=== PATIENT | female | born 1960 | race Caucasian/White ===

== ENCOUNTER 2022-07-14 21:17 | Inpatient (IN) | payer MEDICARE, OTHER ==
[~2022-07-14] VITALS: Ht 165.1 cm; Wt 58.0 kg
[2022-07-14] MEDS ORDERED: QUET25TA PO (22:30)
[2022-07-14] MEDS ORDERED: LITH300T PO (22:30)
[2022-07-14] MEDS ORDERED: VORT20TA PO (22:30)
[2022-07-14 23:15] LABS: COVID AG,FIA SOURCE NASOPHARYNGEAL
[2022-07-14 23:16] LABS: BASOPHILS % (AUTO) 0.7 % (0.0-2.0); EOSINOPHILS % (AUTO) 1.4 % (1.0-6.0); HEMATOCRIT 37.5 % (36-46); HEMOGLOBIN 12.1 g/dL (12.0-16.0); LYMPHOCYTES # (AUTO) 1.4 K/uL (1.0-4.8); LYMPHOCYTES % (AUTO) 10.2 % (22.0-44.0); MEAN CORPUSCULAR HEMOGLOBIN 28.2 pg (26.0-34.0); MEAN CORPUSCULAR HGB CONC 32.4 G/dL (31.0-37.0); MEAN CORPUSCULAR VOLUME 87 fL (80-100); MONOCYTES # (AUTO) 0.4 K/uL (0.1-1.0); MONOCYTES % (AUTO) 3.3 % (2.0-9.0); NEUTROPHILS # (AUTO) 11.5 K/uL (1.8-7.7); NEUTROPHILS % (AUTO) 84.4 % (40.0-70.0); PLATELET COUNT (AUTO) 345 K/uL (150-450); RED CELL DISTRIBUTION WIDTH 14.2 % (11.5-14.5)
[2022-07-14 23:24] LABS: ANION GAP 9 mmol/L (8-16); CALCIUM, TOTAL 9.2 mg/dL (8.8-10.5); CARBON DIOXIDE 29 mmol/L (22-29); CHLORIDE 100 mmol/L (98-107); CREATININE 0.87 mg/dL (0.60-1.30); GLUCOSE,RANDOM 105 mg/dL (70-110); SODIUM SERUM 138 mmol/L (136-145); UREA NITROGEN, BLOOD 11 mg/dL (7-18)
[2022-07-14 23:26] LABS: GLOMERULAR FILTR. RATE CALC > 60 mL/min (>60)
[2022-07-14 23:28] LABS: AMPHET/METH SCREEN,URINE NEGATIVE (NEGATIVE); BARBITURATE SCREEN, URINE NEGATIVE (NEGATIVE); BENZODIAZEPINES SCREEN,URINE NEGATIVE (NEGATIVE); CANNABINOID SCREEN,URINE NEGATIVE (NEGATIVE); COCAINE SCREEN,URINE NEGATIVE (NEGATIVE); METHADONE SCREEN, URINE NEGATIVE (NEGATIVE); OPIATE SCREEN,URINE NEGATIVE (NEGATIVE)
[2022-07-14 23:29] LABS: PHENCYCLIDINE SCREEN,URINE NEGATIVE (NEGATIVE)
[2022-07-14 23:39] LABS: ALANINE AMINOTRANSFERASE 17 U/L (12-78); ALBUMIN 4.4 g/dL (3.4-5.0); ALKALINE PHOSPHATASE 58 U/L (46-116); ASPARTATE AMINOTRANSFERASE 17 U/L (15-37); BILIRUBIN,TOTAL 0.2 mg/dL (0.1-1.0); TOTAL PROTEIN, SERUM 8.2 g/dL (6.4-8.2)
[2022-07-14 23:54] LABS: APPEARANCE,URINE CLEAR (CLEAR); BILIRUBIN,URINE NEGATIVE (NEGATIVE); GLUCOSE, URINE (UA) NEGATIVE (NEGATIVE); KETONES,URINE NEGATIVE (NEGATIVE); LEUKOCYTE ESTERASE ,URINE LARGE (NEGATIVE); NITRATE,URINE NEGATIVE (NEGATIVE); OCCULT BLOOD,URINE NEGATIVE (NEGATIVE); PH,URINE 5.5 (5.0-8.0); PROTEIN,URINE NEGATIVE (NEGATIVE); SPECIFIC GRAVITIY, URINE 1.004 (1.003-1.030); UROBILINOGEN,URINE <=1.0 mg/dL (<=1.0)
[2022-07-14 23:55] LABS: LITHIUM 0.37 mmol/L (0.60-1.20)
[2022-07-15] MEDS ORDERED: QUEtiapine FUMARATE 25 MG TABLET PO ONE
[2022-07-15 00:05] LABS: BACTERIA,URINE None Seen /HPF (None Seen); RBC,URINE None Seen /HPF (0-2); SQUAMOUS EPITHELIAL CELL,UR Few /LPF (None Seen)
[2022-07-15 02:10] VITALS: BP 124/69
[2022-07-15 08:00] VITALS: BP 115/73
[2022-07-15] MEDS: CEPHALEXIN MONOHYDRATE 250 MG CAPSULE PO SCH ×2 (09:35→16:31)
[2022-07-15] MEDS: LORazepam 2 MG TABLET PO PRN (13:15)
[2022-07-15] MEDS ORDERED: ONDANSETRON HCL 4 MG TABLET PO PRN ×2 (13:45→17:45)
[2022-07-15] MEDS ORDERED: ALBUTEROL SULFATE HFA 90 MCG/PUFF 8 GM INHALER IH PRN ×2 (13:45→17:45)
[2022-07-15] MEDS ORDERED: MAGNESIUM HYDROXIDE SUSPENSION 30 ML UDCUP PO PRN ×2 (13:45→17:45)
[2022-07-15] MEDS ORDERED: ACETAMINOPHEN 325 MG TABLET PO PRN ×2 (13:45→17:45)
[2022-07-15] MEDS ORDERED: IBUPROFEN 400 MG TABLET PO PRN (13:45)
[2022-07-15] MEDS ORDERED: NICOTINE 14 MG/24 HOUR PATCH TD PRN ×2 (13:45→17:45)
[2022-07-15] MEDS ORDERED: MAG HYDROX/AL HYDROX/SIMETH ES 30 ML SUSPENSION UDCUP PO PRN ×2 (13:45→17:45)
[2022-07-15] MEDS ORDERED: GuaiFENesin/D-METHORPHAN [SUGAR-FREE] 200-20MG/10 ML SYRUP UDCUP PO PRN ×2 (13:45→17:45)
[2022-07-15] MEDS ORDERED: LOPERAMIDE HCL 2 MG CAPSULE PO PRN ×2 (13:45→17:45)
[2022-07-15] MEDS ORDERED: DOCUSATE SODIUM 100 MG CAPSULE PO PRN ×2 (13:45→17:45)
[2022-07-15] MEDS ORDERED: PETROLATUM,WHITE 28 GM JELLY TP PRN ×2 (13:45→17:45)
[2022-07-15] MEDS ORDERED: CloNIDine HCL 0.1 MG TABLET PO PRN ×2 (13:45→17:45)
[2022-07-15] MEDS: ZOLPIDEM TARTRATE 10 MG TABLET PO PRN (20:30)
[2022-07-16] MEDS: CEPHALEXIN MONOHYDRATE 250 MG CAPSULE PO SCH ×3 (00:15→16:15)
[2022-07-16] MEDS: HALOPERIDOL 5 MG TABLET PO PRN (06:51)
[2022-07-16] MEDS: LORazepam 2 MG TABLET PO PRN (06:51)
[2022-07-16 08:00] VITALS: BP 94/59
[2022-07-16 08:47] LABS: HEMOGLOBIN A1C 5.4 % (3.8-5.6)
[2022-07-16 09:02] LABS: THYROID STIMULATING HORMONE 1.33 uIU/mL (0.36-3.74)
[2022-07-16] MEDS ORDERED: QUEtiapine FUMARATE 25 MG TABLET PO ONE (11:30)
[2022-07-16] MEDS: ESCITALOPRAM OXALATE 10 MG TABLET PO SCH (12:15)
[2022-07-16 12:19] LABS: CHOL/HDL RATIO 2.2 (3.9-5.7)
[2022-07-16 16:00] VITALS: BP 95/61
[2022-07-16] MEDS: QUEtiapine FUMARATE 25 MG TABLET PO SCH (16:16)
[2022-07-16] MEDS: LITHIUM CARBONATE 450 MG ER TABLET PO SCH (21:08)
[2022-07-16] MEDS: ZOLPIDEM TARTRATE 10 MG TABLET PO PRN (21:08)
[2022-07-17] MEDS: CEPHALEXIN MONOHYDRATE 250 MG CAPSULE PO SCH ×4 (00:08→23:04)
[2022-07-17 06:21] VITALS: BP 101/60
[2022-07-17] MEDS: IBUPROFEN 400 MG TABLET PO PRN ×2 (06:43→16:09)
[2022-07-17 08:20] VITALS: BP 141/86
[2022-07-17] MEDS: ESCITALOPRAM OXALATE 10 MG TABLET PO SCH (09:01)
[2022-07-17] MEDS: QUEtiapine FUMARATE 25 MG TABLET PO SCH ×2 (09:02→16:09)
[2022-07-17] MEDS: DESVENLAFAXINE SUCCINATE 50 MG ER TABLET PO SCH (11:30)
[2022-07-17 16:04] VITALS: BP 109/67
[2022-07-17] MEDS: ZOLPIDEM TARTRATE 10 MG TABLET PO PRN (20:20)
[2022-07-17] MEDS: LITHIUM CARBONATE 450 MG ER TABLET PO SCH (20:20)
[2022-07-17] MEDS: HALOPERIDOL 5 MG TABLET PO PRN (22:17)
[2022-07-17] MEDS: LORazepam 2 MG TABLET PO PRN (22:17)
[2022-07-18] MEDS: CEPHALEXIN MONOHYDRATE 250 MG CAPSULE PO SCH ×3 (08:03→23:25)
[2022-07-18] MEDS: QUEtiapine FUMARATE 25 MG TABLET PO SCH ×2 (08:07→16:28)
[2022-07-18] MEDS: DESVENLAFAXINE SUCCINATE 50 MG ER TABLET PO SCH (08:07)
[2022-07-18] MEDS: ESCITALOPRAM OXALATE 10 MG TABLET PO SCH (08:07)
[2022-07-18 09:12] VITALS: BP 106/60
[2022-07-18 09:58] VITALS: BP 115/66
[2022-07-18] MEDS: IBUPROFEN 400 MG TABLET PO PRN ×2 (10:01→20:45)
[2022-07-18] MEDS: HALOPERIDOL 5 MG TABLET PO PRN (13:57)
[2022-07-18 16:03] VITALS: BP 109/77
[2022-07-18] MEDS: LITHIUM CARBONATE 450 MG ER TABLET PO SCH (20:32)
[2022-07-18 20:45] VITALS: BP 110/76
[2022-07-18] MEDS: ZOLPIDEM TARTRATE 10 MG TABLET PO PRN (20:45)
[2022-07-19] MEDS: LORazepam 2 MG TABLET PO PRN (03:37)
[2022-07-19 08:35] VITALS: BP 94/67
[2022-07-19] MEDS: CEPHALEXIN MONOHYDRATE 250 MG CAPSULE PO SCH (08:37)
[2022-07-19] MEDS: DESVENLAFAXINE SUCCINATE 50 MG ER TABLET PO SCH (08:37)
[2022-07-19] MEDS: QUEtiapine FUMARATE 25 MG TABLET PO SCH (08:37)
[2022-07-19] MEDS: ESCITALOPRAM OXALATE 10 MG TABLET PO SCH (08:37)
[2022-07-19] MEDS ORDERED: LITH450CRT PO (10:36)
[2022-07-19] MEDS ORDERED: QUET25TA36 PO (10:36)
[2022-07-19] MEDS ORDERED: DESV50TA35 PO (10:36)
[2022-07-19] MEDS ORDERED: ESCI10 PO (10:36)
== END 2022-07-19 11:55 | disposition home or self-care (01) | DRG 885 ==
LOC: EMS 21:18 → 3EX 07-15 01:00 → EMS 07-15 01:50
PROVIDERS: ADMIT Psychiatry & Neurology Child & Adolescent Psychiatry; ATTEND Psychiatry & Neurology Child & Adolescent Psychiatry
DX: F33.2 Major depressive disorder, recurrent severe without psychotic features (principal); R45.851 Suicidal ideations; N39.0 Urinary tract infection, site not specified; F41.9 Anxiety disorder, unspecified; E78.5 Hyperlipidemia, unspecified; Z20.822 Contact with and (suspected) exposure to COVID-19; G47.00 Insomnia, unspecified; F99 Mental disorder, not otherwise specified; F10.10 Alcohol abuse, uncomplicated; Y90.9 Presence of alcohol in blood, level not specified; Z71.41 Alcohol abuse counseling and surveillance of alcoholic; Z91.199 Patient's noncompliance with other medical treatment and regimen due to unspecified reason
CPT/HCPCS: 80053; 80061; 80178; 80307; 81001; 83036; 84443; 85025; 87081; 87086; 87186; 99285; G0378; G0480; Q9967